=== PATIENT | male | born 1980 | race Caucasian/White ===

== ENCOUNTER → 2023-10-27 07:06 | Outpatient (REF) | payer MEDICARE, SELFPAY | LOC: HWRAD 07:06 | PROVIDERS: ATTENDING PHYSICIAN Surgery; FAMILY PHYSICIAN Family Medicine | DX: N50.811 Right testicular pain (principal) | CPT/HCPCS: 76870; 93976 ==

== ENCOUNTER → 2024-04-15 06:43 | Outpatient (REF) | payer MEDICARE, SELFPAY | LOC: PAVMRI 06:43 | PROVIDERS: ATTENDING PHYSICIAN Family Medicine | DX: M54.2 Cervicalgia (principal); R51.9 Headache, unspecified | CPT/HCPCS: 70551; 72141 ==

== ENCOUNTER → 2024-10-13 07:00 | Outpatient (REF) | payer MEDICARE, SELFPAY | LOC: RAD 07:00 | PROVIDERS: ATTENDING PHYSICIAN Internal Medicine; FAMILY PHYSICIAN Family Medicine | DX: M31.4 Aortic arch syndrome [Takayasu] (principal); H02.432 Paralytic ptosis of left eyelid; R63.4 Abnormal weight loss; M05.80 Other rheumatoid arthritis with rheumatoid factor of unspecified site; I77.6 Arteritis, unspecified | CPT/HCPCS: 70498; 71275; Q9967 ==

== ENCOUNTER → 2024-10-31 08:45 | Outpatient (REF) | payer MEDICARE, SELFPAY | LOC: RAD 08:45 | PROVIDERS: ATTENDING PHYSICIAN Internal Medicine Rheumatology; FAMILY PHYSICIAN Family Medicine | DX: M06.00 Rheumatoid arthritis without rheumatoid factor, unspecified site (principal); M79.641 Pain in right hand | CPT/HCPCS: 73130 ==

== ENCOUNTER → 2024-12-08 11:49 | Outpatient (REF) | payer MEDICARE, SELFPAY | LOC: RAD 11:49 | PROVIDERS: ATTENDING PHYSICIAN Internal Medicine Rheumatology; FAMILY PHYSICIAN Family Medicine | DX: M16.10 Unilateral primary osteoarthritis, unspecified hip (principal); M17.10 Unilateral primary osteoarthritis, unspecified knee | CPT/HCPCS: 73523; 73560; 73565 ==

== ENCOUNTER → 2024-12-21 08:03 | Outpatient (REF) | payer MEDICARE, SELFPAY | LOC: HWRAD 08:03 | PROVIDERS: ATTENDING PHYSICIAN Family Medicine | DX: I25.10 Atherosclerotic heart disease of native coronary artery without angina pectoris (principal); E78.2 Mixed hyperlipidemia; Z82.49 Family history of ischemic heart disease and other diseases of the circulatory system | CPT/HCPCS: 75571 ==

== ENCOUNTER → 2024-12-30 14:43 | Outpatient (REF) | payer MEDICARE, SELFPAY | LOC: RCS 14:43 | PROVIDERS: ATTENDING PHYSICIAN Family Medicine | DX: I11.9 Hypertensive heart disease without heart failure (principal) | CPT/HCPCS: 93306 ==